=== PATIENT | female | born 1980 | race Caucasian/White ===

== ENCOUNTER 2019-04-26 16:02 | Emergency (ER) | payer MEDICAID ==
[~2019-04-26] VITALS: Ht 149.9 cm; Wt 54.4 kg
[2019-04-26 16:09] VITALS: BP 118/73; PULSE 88; RESP 18; Ht 149.9 cm; Wt 54.4 kg
--- NOTE | 2019-04-26 18:32 | ERD ---
ER Documentation Chief Complaint Chief Complaint urine pain x 3 days HPI 38-year-old female presents with complaint of urinary pain for the past 3 days. Denies hematuria, fevers, chills, flank pain, abdominal pain, vomiting. ROS All systems reviewed and are negative except as per history of present illness. Allergies Allergies: Coded Allergies: No Known Allergy (Unverified , 04/26/19) PMhx/Soc Medical and Surgical Hx: pt denies Medical Hx, pt denies Surgical Hx Hx Alcohol Use: No Hx Substance Use: No Hx Tobacco Use: No FmHx Family History: No diabetes, No coronary disease, No other Physical Exam Vitals Vital Signs Date Temp Pulse Resp B/P (MAP) Pulse Ox O2 O2 Flow FiO2 Time Delivery Rate 04/26/19 100.2 88 18 118/73 97 16:09 (88) Physical Exam Const: No acute distress Head: Atraumatic Eyes: Normal Conjunctiva ENT: Normal External Ears, Nose and Mouth. Neck: Full range of motion. No meningismus. Resp: Clear to auscultation bilaterally Cardio: Regular rate and rhythm, no murmurs Abd: Suprapubic tenderness. Otherwise normal abdominal exam. Skin: No petechiae or rashes Back: No midline or flank tenderness Ext: No cyanosis, or edema Neur: Awake and alert Psych: Normal Mood and Affect Procedures/MDM MDM: UA was performed and results were positive for UTI. Urine sent for culture as well. Patients presentation is consistent with incomplicated UTI and patient will be given rx for keflex. At this time I have low suspicion for pyelonephritis, appendicites, PID, ovarion torsion, tubo ovarion abscess, or any other emergent condition. Patient discharged with strict ER precautions. Patient advised to follow up with PMD. All questions answered at discharge. Departure Diagnosis: Primary Impression: UTI (urinary tract infection) Condition: Stable ABIGAIL CERVANTES April 26, 2019 18:32
[2019-04-26] MEDS ORDERED: CEPH-443 PO (18:53)
== END 2019-04-26 19:00 | disposition home or self-care (01) ==
LOC: FTE 16:02
DX: N39.0 Urinary tract infection, site not specified (principal)
CPT/HCPCS: 81003; 87086; 99283

== ENCOUNTER 2019-05-14 16:14 | Emergency (ER) | payer MEDICAID ==
[~2019-05-14] VITALS: Ht 149.9 cm; Wt 53.5 kg
[~2019-05-14 16:14] MED LIST: CEPH-443 PO
[2019-05-14 16:17] VITALS: BP 104/52; PULSE 67; RESP 16; Ht 149.9 cm; Wt 53.5 kg
[2019-05-14] MEDS ORDERED: PHEN-538 PO (17:19)
[2019-05-14] MEDS ORDERED: CEPH-443 PO (17:19)
[2019-05-14] MEDS ORDERED: ACETAMINOPHEN 500 MG TAB PO STA (17:20)
[2019-05-14] MEDS ORDERED: LIDOCAINE 1% (MPF) 5 ML VIAL IM ONE (17:30)
[2019-05-14] MEDS ORDERED: CEFTRIAXONE 1 GM INJ IM ONE (17:30)
--- NOTE | 2019-05-14 17:33 | ERD ---
ER Documentation Chief Complaint Chief Complaint PT REPORTS PAINFUL URINATION X 2 DAYS HPI History of Present Illness: 38-year-old female who denies past medical history coming in today with complaint of painful urination that is been present for 2 days. Patient reports a recent urinary infection on 04/26/2019 in which she was prescribed cephalexin for 7 days; reports that she did complete the course of antibiotics. Denies fever, chills, weakness/fatigue, abdominal pain, vaginal discharge. pharmacological/nonpharmacological treatment for symptoms: Denies Denies social concerns; Denies recent foreign travel ROS All systems reviewed and are negative except as per history of present illness. Medications Home Meds Active Scripts Phenazopyridine Hcl* (Pyridium*) 200 Mg Tab, 200 MG PO TID PRN for URINARY PAIN for 2 Days, #6 TAB Prov:SPIKE CAREY [employer] 05/14/19 Cephalexin* (Keflex*) 500 Mg Capsule, 500 MG PO QID for urine infrection for 10 Days, CAP Prov:SPIKE CAREY [employer] 05/14/19 Cephalexin* (Keflex*) 500 Mg Capsule, 500 MG PO BID for 7 Days, CAP Prov:ABIGAIL CERVANTES 04/26/19 Allergies Allergies: Coded Allergies: No Known Allergy (Unverified , 04/26/19) PMhx/Soc Medical and Surgical Hx: pt denies Medical Hx History of Surgery: No Anesthesia Reaction: No Hx Neurological Disorder: No Hx Respiratory Disorders: No Hx Cardiac Disorders: No Hx Psychiatric Problems: No Hx Miscellaneous Medical Probl: No Hx Alcohol Use: No Hx Substance Use: No Hx Tobacco Use: No Physical Exam Vitals Vital Signs Date Temp Pulse Resp B/P (MAP) Pulse Ox O2 O2 Flow FiO2 Time Delivery Rate 05/14/19 99.6 67 16 104/52 97 16:17 (69) Physical Exam Const: No acute distress, afebrile Head: Atraumatic Eyes: Normal Conjunctiva ENT: Normal External Ears, Nose and Mouth. Neck: Full range of motion. No meningismus. Resp: Clear to auscultation bilaterally Cardio: Regular rate and rhythm, no murmurs Abd: Soft, suprapubic tenderness, non distended. No guarding, no masses, no rigidity Skin: No petechiae or rashes Back: No midline or flank tenderness Ext: No cyanosis, or edema Neur: Awake and alert x3, speaking in clear sentences, no focal deficits or facial asymmetry Psych: Normal Mood and Affect Results 24 hrs Laboratory Tests Test 05/14/19 16:42 05/14/19 16:47 Urine Color STRAW Urine Clarity SLIGHTLY CLOUDY Urine pH 6.0 Urine Specific [place] 1.001 Urine Ketones NEGATIVE mg/dL Urine Nitrite NEGATIVE mg/dL Urine Bilirubin NEGATIVE mg/dL Urine Urobilinogen NEGATIVE mg/dL Urine Leukocyte Esterase 3+ Pj/ul Urine Microscopic RBC 1 /HPF Urine Microscopic WBC 11 /HPF Urine Hemoglobin 2+ mg/dL Urine Glucose NEGATIVE mg/dL Urine Total Protein NEGATIVE mg/dl POC Beta HCG, Qualitative NEGATIVE Current Medications Medications Dose Sig/Crissy Start Time Status Last (Trade) Ordered Route PRN Stop Time Admin Dose Reason Admin Ceftriaxone 1 gm ONCE ONCE 05/14/19 Sodium IM 17:30 (Rocephin) 05/14/19 17:31 Lidocaine 2.1 ml ONCE ONCE 05/14/19 (Xylocaine IM 17:30 1% (Mpf)) 05/14/19 17:31 1,000 mg ONCE STAT 05/14/19 DC Acetaminophen PO 17:20 (Tylenol 05/14/19 17:21 Tab) Procedures/MDM ED course includes a thorough examination and history. Medications: Imaging: Labs: Urinalysis, urine Low suspicion for life-threatening medical emergency. Low suspicion for infectious process that requires hospitalization. Low suspicion for acute abdominal emergency. Low suspicion for pyelonephritis. Otherwise healthy patient presenting with constellation of symptoms likely representing recurrent urinary tract infection as characterized by history, physical exam findings, lab findings. Urine negative. Urinalysis positive for 3+ leukocyte Estrace, 11 WBCs, 2+ hemoglobin. Patient reassessment 1730: Orders placed for urine culture since this is a recurrent urinary tract infection. Orders placed for ceftriaxone before discharge. Patient hemodynamically stable. No respiratory distress, otherwise relatively well appearing and nontoxic. Disposition given. Patient educated on diagnoses, prescriptions, follow-up care, return precautions. Strict return precautions given for worsening condition; questions answered discharge. Patient/ verbalizes understanding of discharge instructions as well as plan of care, follow-up, return precautions. Disposition for discharge with followup in 2 days with PCP/clinic. Departure Diagnosis: Primary Impression: Recurrent UTI Condition: Stable Patient Instructions: Urinary Tract Infections in Women Referrals: [facility] Usted se carrasco hecho un examen mdico de control que le indica que no est en joey condicin que requiera tratamiento urgente en el Departamento de Emergencia. Un estudio ms profundo y el tratamiento de do condicin pueden esperar sin ningn riesgo hasta que usted sea atendida/o en el consultorio de do mdico o joey clnica. Es responsabilidad suya arreglar joey abel para el seguimiento del nidia. MANEJO DE CONDICIONES NO URGENTES EN EL FUTURO 1) Si usted tiene un mdico de atencin primaria: Usted debera llamar a do mdico de atencin primaria antes de venir al departamento de emergencia. Despus de las horas de consultorio, do doctor o do asociado/a est disponible por telfono. El mdico o enfermero de bridget en el servicio telefnico puede asesorarle por frida medio para atender el problema, o nidia contrario se puede programar joey abel. 2) Si usted no tiene un mdico de atencin primaria: Llame al mdico o clnica de referencia que aparece abajo geo las horas de consultorio para hacer joey abel para que le vean. CLINICAS: [facility] [phone] [facility] [phone] [facility] [phone] [facility]. [facility] [phone] [facility]. [place] [phone] [facility]. [phone] [address] [facility]. [facility] () Usted se carrasco hecho un examen mdico de control que le indica que no est en joey condicin que requiera tratamiento urgente en el Departamento de Emergencia. Un estudio ms profundo y el tratamiento de do condicin pueden esperar sin ningn riesgo hasta que usted sea atendida/o en el consultorio de do mdico o joey clnica. Es responsabilidad suya arreglar joey abel para el seguimiento del nidia. MANEJO DE CONDICIONES NO URGENTES EN EL FUTURO 1) Si usted tiene un mdico de atencin primaria: Usted debera llamar a do mdico de atencin primaria antes de venir al departamento de emergencia. Despus de las horas de consultorio, do doctor o do asociado/a est disponible por telfono. El mdico o enfermero de bridget en el servicio telefnico puede asesorarle por frida medio para atender el problema, o nidia contrario se puede programar joey abel. 2) Si usted no tiene un mdico de atencin primaria: Llame al mdico o condado institucions de referencia que aparece abajo geo las horas de consultorio para hacer joey abel para que le vean. SI USTED NO PUEDE PAGAR PARA LAVON UN MEDICO puede ir a: [facility] [address] [place] [address] [facility] [address] [place] [address] [facility] [address] [place] [address] [facility] [address] [place], [place] [phone] Additional Instructions: Muchas braxton por permitirnos participar en do cuidado. Do emma y seguridad es nuestra principal prioridad en [facility]. Es importante leer todas las instrucciones de mariah y la educacin que se proporcionan en do paquete de mariah. * Le estamos administrando el mismo antibitico que tuvo la ltima vez para do infeccin de orina. Recibir joey dosis ms mariah y por 10 quintero en lugar de 7 quintero. * Llame a do mdico de atencin primaria MAANA para joey abel geo los prximos 2 a 4 quintero y lleve toda la informacin y los medicamentos recetados. Llene las recetas y siga exactamente las instrucciones de la etiqueta. -Cefalexina es un antibitico; tome sara medicamento todos los quintero garrison se indica en do receta. Debe completar todo el curso de tratamiento que figura en do receta. [place] es muy importante porque se necesitan varios quintero para eliminar las bacterias que causan la infeccin. -El piridio es un medicamento que ayudar a disminuir el dolor urinario. Sara medicamento puede hacer que do orina se vuelva naranja. Sara es un efecto secundario normal de la medicacin. Si los sntomas empeoran y do proveedor no est disponible, regrese inmediatamente al Departamento de Emergencias. ---- Thank you very much for allowing us to participate in your care. Your health and safety is our top priority at [facility]. It is important to read all discharge instructions and education provided in your discharge packet. *We are giving you the same antibiotic as you had last time for your urine infection. You will receive a higher dose and for 10 days instead of 7 days.* Call your primary care doctor TOMORROW for an appointment during the next 2-4 days and bring all the information and medications prescribed. Have prescriptions filled and follow precisely the directions on the label. -Cephalexin is an antibiotic; take this medication every day as listed on your prescription. You must complete the entire course of treatment that is listed on your prescription this is very important because it takes a certain number of days to kill the bacteria that is causing the infection. -Pyridium is a medication that will help decrease urinary pain. This medication may make your urine turn orange. This is a normal side effect of the medication. If the symptoms get worse and your provider is unavailable, return to the Emergency Department immediately. SPIKE CAREY NP May 14, 2019 17:33
== END 2019-05-14 17:43 | disposition home or self-care (01) ==
LOC: FTE 16:14
DX: N39.0 Urinary tract infection, site not specified (principal)
CPT/HCPCS: 81001; 81025; 87086; 96372; J0696; Z7502; Z7610